=== PATIENT | male | born 1990 | race African-American/Black ===

== ENCOUNTER 2024-02-24 14:22 | Emergency (ER) | payer MEDICAID, OTHER ==
[~2024-02-24] VITALS: Ht 182.9 cm; Wt 78.0 kg
[2024-02-24 14:28] VITALS: O2SAT 100
[2024-02-24] MEDS ORDERED: IBUP-2029 MT (15:36)
[2024-02-24 15:54] VITALS: BP 126/61; PULSE 72; RESP 18; TEMP 98.2
== END 2024-02-24 16:35 | disposition home or self-care (01) ==
LOC: ER 14:22
DX: S16.1XXA Strain of muscle, fascia and tendon at neck level, initial encounter (principal); S39.012A Strain of muscle, fascia and tendon of lower back, initial encounter; V49.49XA Driver injured in collision with other motor vehicles in traffic accident, initial encounter; Y93.89 Activity, other specified; Y92.89 Other specified places as the place of occurrence of the external cause; Y99.8 Other external cause status
CPT/HCPCS: 99281; 99282